=== PATIENT | female | born 1980 ===

== ENCOUNTER 2018-06-03 14:05 | Emergency (ER) | payer OTHER ==
[2018-06-03 14:22] VITALS: BMI 29.2
--- NOTE | 2018-06-03 15:35 | C.PDOC ---
History Of Present Illness 37 y/o female with no significant PMHx presents to the ED c/o fever, headache, myalgias and abdominal discomfort since yesterday. No sick contacts. Denies any cough, n/v/d, back pain, or urinary symptoms. HPI: Influenza Time Seen by Provider: 06/03/18 14:31 Chief Complaint: Flu-like Symptoms Chief Complaint (Provider): Flu-like Symptoms History Per: Patient Exam Limitations: no limitations Onset/Duration Of Symptoms: Days (x2) Symptoms include: fever, headache, bodyaches Past Medical History Reviewed: Historical Data, Nursing Documentation, Vital Signs Vital Signs: Last Vital Signs Temp 102.6 F H 06/03/18 14:29 Pulse 125 H 06/03/18 14:22 Resp 18 06/03/18 14:22 BP 124/78 06/03/18 14:22 Pulse Ox 99 06/03/18 14:22 - Medical History PMH: No Chronic Diseases Surgical History: Appendectomy, Family History: States: No Known Family Hx - Social History Hx Tobacco Use: No Hx Alcohol Use: No Hx Substance Use: No - Immunization History Hx Tetanus Toxoid Vaccination: No Hx Influenza Vaccination: No Hx Pneumococcal Vaccination: No Review Of Systems Constitutional: Positive for: Fever, Other (Diffuse myalgias) ENT: Negative for: Throat Pain Cardiovascular: Negative for: Chest Pain Respiratory: Negative for: Cough, Shortness of Breath Gastrointestinal: Positive for: Abdominal Pain. Negative for: Nausea, Vomiting, Diarrhea Genitourinary: Negative for: Dysuria, Frequency, Incontinence Musculoskeletal: Negative for: Back Pain Neurological: Positive for: Headache Physical Exam - Physical Exam Appears: Non-toxic, Other (Appears uncomfortable) Skin: Normal Color, Warm Head: Normacephalic Eye(s): bilateral: PERRL Ear(s): Bilateral: Normal (no erythema) Oral Mucosa: Moist Throat: Normal, No Erythema, No Exudate Neck: Normal ROM, Supple, Other (No meningeal signs) Chest: Symmetrical Cardiovascular: Rhythm Regular (but tachycardic) Respiratory: Normal Breath Sounds, No Rales, No Rhonchi, No Wheezing Gastrointestinal/Abdominal: Bowel Sounds (normal), Soft, Tenderness (mild suprapubic tenderness), No Guarding, No Rebound Back: No CVA Tenderness, No Vertebral Tenderness Extremity: Bilateral: Atraumatic, Normal Color And Temperature Neurological/Psych: Oriented x3, Normal Speech Medical Decision Making Medical Decision Making: Impression: 37 y/o F with fever, abd discomfort, myalgias Plan: Flu swab and urine sent to the lab. Tylenol PO given. Progress: Flu neg, negative . UA +, will treat for UTI. No CVA tenderess. - ECG O2 Sat by Pulse Oximetry: 99 (RA) Pulse Ox Interpretation: Normal Disposition Counseled Patient/Family Regarding: Studies Performed, Diagnosis, Need For Followup, Rx Given - Disposition Referrals: Bree Oakley MD [Staff Provider] - Disposition: HOME/ ROUTINE Disposition Time: 16:01 Condition: IMPROVED Additional Instructions: Tabatha ms lquidos, agua y jugo de arndano linton. Pedro antibiticos hasta completar. Hendrum 600 mg de ibuprofeno (con alimentos) cada 6 horas. Alterne con Tylenol si todava tiene fiebre o dolor. Elly un seguimiento con el Dr. Oakley / nan adkins en los prximos gusman. Regrese a la patito de emergencias para los sntomas peores. Drink more fluids- water and cranberry juice good. Take antibiotics until completed. Take 600 mg ibuprofen (with food) every 6 hours. Alternate with Tylenol if still feverish or in pain. Follow up with Dr Oakley/medical clinic in next few days. Return to ER for worse symptoms., Prescriptions went to [facility] in [employer] . Prescriptions: Acetaminophen [Tylenol 325mg tab] 650 mg PO Q6 #30 tab Nitrofurantoin Macrocrystals [Macrobid] 100 mg PO BID #14 cap Instructions: Urinary Tract Infection, Adult (DC), Viral Syndrome (DC) Forms: Gen Discharge Inst Pakistani, [facility] (Pakistani) Print Language: ICELANDIC - Clinical Impression Clinical Impression: UTI (urinary tract infection), Viral syndrome - PA / STAFFING EXECUTIVE / Resident Statement MD/DO has reviewed & agrees with the documentation as recorded. - Scribe Statement The provider has reviewed the documentation as recorded by the Scribe (Pam Hsieh) All medical record entries made by the Scribe were at my direction and personally dictated by me. I have reviewed the chart and agree that the record accurately reflects my personal performance of the history, physical exam, medical decision making, and the department course for this patient. I have also personally directed, reviewed, and agree with the discharge instructions and disposition.
[2018-06-03 15:36] LABS: HCG,QUALITATIVE URINE NEGATIVE (NEGATIVE)
[2018-06-03 15:46] VITALS: BP 122/73; PULSE 102; RESP 20; TEMP 99.1
[2018-06-03 15:51] LABS: SQUAMOUS EPITHIAL 2 /hpf (0-5); URINE BACTERIA MANY (<OCC); URINE BILIRUBIN NEGATIVE (NEGATIVE); URINE BLOOD 2+ (NEGATIVE); URINE CLARITY Clear (Clear); URINE COLOR Yellow (YELLOW); URINE GLUCOSE (UA) NORMAL (Normal); URINE LEUKOCYTE ESTERASE 3+ Leu/uL (Negative); URINE PROTEIN NEGATIVE (NEGATIVE); URINE UROBILINOGEN NORMAL mg/dL (0.2-1.0)
[2018-06-03 15:59] VITALS: O2SAT 99
== END 2018-06-03 16:08 | disposition home or self-care (01) ==
LOC: C.ER 14:05
DX: N39.0 Urinary tract infection, site not specified (principal); B34.9 Viral infection, unspecified